=== PATIENT | female | born 1980 | race Caucasian/White ===

== ENCOUNTER → 2016-12-06 | Day surgery (SDC) | payer OTHER ==
--- NOTE | 2016-12-05 20:02 | GHP ---
[f rep st] HISTORY AND PHYSICAL DATE OF ADMISSION: 12/06/2016 HISTORY OF PRESENT ILLNESS: The patient is a 36-year-old 3 para 0 who calls into [facility] on 11/05/2016 with a positive test and would like to schedule an appointment. The recommendation was to do serial beta HCGs with progesterone levels. The beta HCG initially was 352 with a progesterone of 21 and then the repeat was 981 with no repeat progesterone. The patient did those draws through an outpatient lab in [place]. The patient was called with the results on 11/06/2016, and was reassured that her labs had doubled and that her progesterone was at 21. On 2016, the patient came in for a viability and dating ultrasound that showed fetus, positive gestational sac, as well as the yolk sac, and at 5 weeks and 2/7 days with no cardiac activity. Did another quant and that quant was 13,176. The plan of care was to follow up with an ultrasound in 1 week. Miscarriage instructions were given and patient verbalized understanding of plan of care. Repeat ultrasound was done on 12/05/2016: 1 fetus, embryo seen with no cardiac activity. Positive yolk sac. Diagnosis missed AB. With this US patient saw a provider and POC and choice was discussed in depth. Patient chose to do a D and C. This is scheduled for 12/06/2016 . Risks, benefits and alternatives were discussed. Preop appt was scheduled to discuss further with the physician. MEDICAL HISTORY: Granuloma annulare. The patient gets a rash occasionally. Increased homocystine levels. Negative X MTHFR SURGICAL HISTORY: Two previous D and C's, one in 2007 and one in 2008. PAST HISTORY: Miscarriages: One in 2007, 2008. The miscarriage in 2007 was spontaneously. In 2008 it was a termination. GYNECOLOGICAL HISTORY: Previous OCP use. At this time no control. SOCIAL HISTORY: Denies tobacco use, Denies drug use. CURRENT MEDICATIONS: vitamins, vitamin D, folate, and a baby aspirin. Other medications: The patient states occasionally Ativan for anxiety. ALLERGIES: The patient states her allergies are to some UTI medication. Denies food allergies or reactions. FAMILY HISTORY: Mother had a blood clot. Paternal grandfather had diabetes. Father had high blood pressure. Grandparents are alcoholics and brother has thyroid disease. Grandmother of rectal and stomach cancer. PHYSICAL EXAMINATION: GENERAL: Today in the office on 12/05/2016, patient is awake, alert, oriented x3, teary and in some distress. LUNGS: Clear bilaterally. ABDOMEN: Bowel sounds are positive in all 4 quadrants. EXTREMITIES: DTRs are 1+ bilaterally with no clonus. Homans sign is negative. Previous workup for thrombophilia states negative 2 MTHFR. PLAN OF CARE: 1. Dilatation and curettage. 2. Anoro at patient's request. 3. Type and screen as well as CBC with procedure. Rhogam if incdicated 4. Dr. Annita Prather is the physician of record for surgery tomorrow am. /[id number]/MODL MTDD
[~2016-12-06] MED LIST: ALBUTEROL 3 ML DEYVIAL IH PRN; DOXYCYCLINE HYCLATE 100 MG CAP/TAB PO ONE; DOXYCYCLINE HYCLATE 100 MG CAP/TAB PO SCH; KETOROLAC 30 MG/1 ML SDV ONE; LIDOCAINE 2% 100 MG/5 ML SYR ONE; LR 500 ML IV PRN; MEPERIDINE 25 MG/ML SYR IVP PRN; MIDAZOLAM 2 MG/2 ML VIAL ONE; NALOXONE HCL 0.4 MG/ML INJ IVP PRN; ONDANSETRON 4 MG/2 ML VIAL IVP PRN; PROPOFOL/EMULSION 500 MG/50 ML BOTTLE IV ONE; fentaNYL 100 MCG/2 ML INJ IVP PRN; fentaNYL 100 MCG/2 ML INJ ONE
--- NOTE | 2016-12-06 10:49 | POSTOPPROG ---
Post Op Note Date of Operation: 12/06/16 Surgeon: Annita Prather Anesthesiologist: josé miguel Anesthesia: IV Sedation Pre-op Diagnosis: missed Post-op Diagnosis: missed Procedure: suction dilation and curretage Inf/Abcess present in the surg proc area at time of surgery?: No EBL: Minimal Specimen(s): products of conception.
--- NOTE | 2016-12-06 11:02 | PDANEPAE ---
ANE Past Medical History - Pulmonary History Hx Sleep Apnea: No ANE Patient History - Allergies Allergies/Adverse Reactions: ciprofloxacin [From Cipro] Allergy (Verified 12/06/16 09:39) - Home Medications Home Medications: Aspirin 81mg (*) 81 mg PO DAILY 12/06/16 [Last Taken 12/04/16 21:00 81 mg] - Smoking Hx Smoking Status: Former smoker ANE Labs/Vital Signs - Vital Signs Height: 160.02 cm Weight: 55.338 kg ANE Physical Exam - Airway Neck exam: FROM Mallampati Score: Class 1 Mouth exam: normal dental/mouth exam - Pulmonary Pulmonary: no respiratory distress - Cardiovascular Cardiovascular: regular rate and rhythym - ASA Status ASA Status: I ANE Anesthesia Plan Anesthesia Plan: GA with mask Total IV Anesthesia: Yes
--- NOTE | 2016-12-06 11:02 | POSTANESTH ---
Post Anesthetic Evaluation Cardiovascular Status: Normal, Stable Respiratory Status: Normal, Stable Level of Consciousness/Mental Status: Can Participate in Eval Pain Control: Adequate, Prn Tx Ordered Nausea/Vomiting Control: Adequate, Prn Tx Ordered Complications Possibly Related to Anesthesia: None Noted
--- NOTE | 2016-12-06 16:05 | GOP ---
[f rep st] OPERATIVE REPORT DATE OF OPERATION: 12/06/2016 SURGEON: Annita Prather DO ANESTHESIA: Sedation. ANESTHESIOLOGIST: Shan Cassidy MD. PREOPERATIVE DIAGNOSIS: Missed . POSTOPERATIVE DIAGNOSIS: Missed . PROCEDURE PERFORMED: Suction dilation and curettage. FINDINGS: Mobile midposition uterus with no adnexal masses. SPECIMENS: Products of conception. ESTIMATED BLOOD LOSS: 10 cc. INDICATIONS: Patient is 36-year-old 3, para 0-0-2-0, who presented for a new OB visit and w as measuring size less than dates. She had a repeat ultrasound 2 weeks later and there had been min imal growth in the fetus and a slow heart rate. She had a repeat ultrasound several days later, and the crown-rump length was 6 weeks but with no cardiac activity anymore, and diagnosis of missed abo rtion was made. Patient was very tearful. Management options were reviewed with the patient. Deci gerri was made to proceed with a suction dilation and curettage with sending the tissue to Pathology for genetic testing due to history of recurrent miscarriages. Risks and benefits of the procedure w ere reviewed extensively with the patient, and patient was properly consented. DESCRIPTION OF PROCEDURE: Patient was taken to the operating room with intravenous fluids running a fter being given p.o. doxycycline. She was then placed on the operating room table in dorsal supine position where anesthesia was obtained. She was then repositioned into the dorsal lithotomy positi on with the Yellofin stirrups and prepped and draped in the normal sterile fashion. Exam under anes thesia revealed a mobile, midposition uterus with no adnexal masses. A speculum was then placed in the patient's vagina. An Allis clamp was used to grasp the anterior lip of the cervix. The cervix was then carefully dilated to allow for the introduction of an 8 curved suction curette. A circumfe rential curettage was performed. A moderate amount of products of conception were noted. A sharp m etal curette was then introduced, and a circumferential curettage was performed gently, and the suct ion curette was reintroduced one additional time. No additional products of conception were noted. Instruments were then removed from the patient's vagina. A transvaginal ultrasound was performed, and a thin endometrial stripe was noted. Minimal bleeding was noted. Patient was returned to the [facility] supine position where she was easily awakened from anesthesia. Sponge count was correct. Pat ient was transferred to the recovery room in stable condition. /[id number]/MODL
== END | disposition home or self-care (01) ==
LOC: FOBOP 07:21
PROVIDERS: ATTEND Obstetrics & Gynecology
PROC: 10D17ZZ Extraction of Products of Conception, Retained, Via Natural or Artificial Opening (ICD-10-PCS; principal; 2016-12-06)
DX: O02.1 Missed abortion (principal)
CPT/HCPCS: J1885; J2001; J2250; J2704; J3010

== ENCOUNTER → 2018-09-10 | Outpatient (CLI) | payer OTHER | LOC: FIMAGING 13:28 ==